=== PATIENT | male | born 1965 | race Caucasian/White ===

== ENCOUNTER 2024-11-03 09:51 | Outpatient (CLI) | payer OTHER, SELFPAY | END 2024-11-03 09:52 | disposition home or self-care (01) | PROVIDERS: PCP Family Medicine; Visit Provider Family Medicine | DX: E03.9 Hypothyroidism, unspecified (principal); Z13.220 Encounter for screening for lipoid disorders; Z13.228 Encounter for screening for other metabolic disorders; Z12.5 Encounter for screening for malignant neoplasm of prostate | CPT/HCPCS: 80048; 80061; 84443; G0103 ==